=== PATIENT | female | born 1985 | race Caucasian/White ===

== ENCOUNTER 2020-12-03 16:43 | Emergency (ER) | payer SELFPAY ==
[2019-08-21 10:00] VITALS: BP 100/40
== END 2020-12-03 19:50 | disposition left against medical advice (07) ==
LOC: ER 16:43
DX: R10.9 Unspecified abdominal pain (principal); R11.2 Nausea with vomiting, unspecified; R19.7 Diarrhea, unspecified; Z53.21 Procedure and treatment not carried out due to patient leaving prior to being seen by health care provider